=== PATIENT | female | born 1950 | race Two or more races ===

== ENCOUNTER 2019-12-17 11:59 | Inpatient (IN) | payer OTHER ==
[~2019-12-17] VITALS: Ht 152.4 cm; Wt 67.1 kg
[2020-01-18] MEDS ORDERED: CRESTOR20 MG PO (11:51)
[2020-01-18] MEDS ORDERED: LEVOTHYROXINE25 MCG PO (11:51)
[2020-01-22] MEDS ORDERED: DICLOFENAC POTA50 MG (11:53)
== END 2020-01-25 16:09 | disposition home or self-care (01) | DRG 330 ==
LOC: O/R 01-22 06:06 → SURH 01-22 09:45 → SURG 01-22 11:55
PROVIDERS: ADMIT Colon & Rectal Surgery; ATTEND Colon & Rectal Surgery
PROC: 0DTN4ZZ Resection of Sigmoid Colon, Percutaneous Endoscopic Approach (ICD-10-PCS; principal; 2020-01-22 11:15)
DX: K57.32 Diverticulitis of large intestine without perforation or abscess without bleeding (principal); D62 Acute posthemorrhagic anemia; E03.8 Other specified hypothyroidism; E78.49 Other hyperlipidemia; R73.01 Impaired fasting glucose; K59.02 Outlet dysfunction constipation

== ENCOUNTER 2021-04-24 06:49 | Day surgery (SDC) | payer OTHER ==
[~2021-04-24 06:49] MED LIST: CRESTOR20 MG PO; DICLOFENAC POTA50 MG; LEVOTHYROXINE25 MCG PO
== END 2021-04-24 12:00 | disposition home or self-care (01) ==
LOC: AMB-ENDOS 06:49
PROVIDERS: ATTEND Colon & Rectal Surgery
DX: K57.32 Diverticulitis of large intestine without perforation or abscess without bleeding (principal); K64.0 First degree hemorrhoids; Z20.822 Contact with and (suspected) exposure to COVID-19